=== PATIENT | female | born 1950 | race Two or more races ===

== ENCOUNTER 2017-11-29 11:34 | Emergency (ER) | payer OTHER ==
[2017-11-29] MEDS: DIATR MEGLU/DIATRIZOATE SODIUM 120 ML BTL (11:49)
[2017-11-29] MEDS: DIATR MEGLU/DIATRIZOATE SODIUM 30 ML SOLUTION PO (12:00)
== END 2017-11-29 14:32 | disposition home or self-care (01) ==
LOC: E/R 11:34
DX: J96.10 Chronic respiratory failure, unspecified whether with hypoxia or hypercapnia (principal); Z87.891 Personal history of nicotine dependence
CPT/HCPCS: 74018; 94002; 99283-25

== ENCOUNTER 2017-12-01 08:19 | Emergency (ER) | payer OTHER ==
[2017-12-01] MEDS: LORAZEPAM 2 MG INJ IM (09:24)
[2017-12-01] MEDS: SOD CHLORIDE 0.9% 1,000 ML IV (10:50)
[2017-12-01 11:00] LABS: ADD MAN DIFF? NO
[2017-12-01 11:08] LABS: BASOPHILS % 0.2 % (0.0-2.0); EOSINOPHILS # 0.1 10^3/ul (0.0-0.5); EOSINOPHILS % 0.9 % (0.0-7.0); HEMATOCRIT 27.5 % (37.0-47.0); HEMOGLOBIN 9.7 g/dl (12.0-16.0); LYMPHOCYTES # 1.1 10^3/ul (0.8-2.9); MEAN CORPUSCULAR HEMOGLOBIN 32.8 pg (29.0-33.0); MEAN CORPUSCULAR HGB CONC 35.3 g/dl (32.0-37.0); MEAN CORPUSCULAR VOLUME 92.9 fl (82.0-101.0); MEAN PLATELET VOLUME 9.3 fl (7.4-10.4); MONOCYTE # 0.6 10^3/ul (0.3-0.9); MONOCYTES % 4.2 % (0.0-11.0); NEUTROPHIL # 11.6 10^3/ul (1.6-7.5); NEUTROPHILS % 85.9 % (39.0-77.0); PLATELET COUNT 315 10^3/UL (140-415); RED BLOOD COUNT 2.96 10^6/ul (4.20-5.40); RED CELL DISTRIBUTION WIDTH 13.2 % (11.5-14.5)
[2017-12-01 11:08] LABS: WHITE BLOOD COUNT 13.5 10^3/ul (4.8-10.8)
[2017-12-01 11:19] LABS: ALANINE AMINOTRANSFERASE 53 IU/L (13-69); ALBUMIN 3.5 g/dl (3.3-4.9); ALBUMIN/GLOBULIN RATIO 0.85; ALKALINE PHOSPHATASE 144 IU/L (42-121); ANION GAP 18 (8-16); ASPARTATE AMINO TRANSFERASE 44 IU/L (15-46); BILIRUBIN,INDIRECT 0.1 mg/dl (0-1.1); BILIRUBIN,TOTAL 0.1 mg/dl (0.2-1.3); BLOOD UREA NITROGEN 66 mg/dl (7-20); CALCIUM 9.4 mg/dl (8.4-10.2); CARBON DIOXIDE 17 mmol/L (21-31); CHLORIDE 105 mmol/L (97-110); CREATININE 0.95 mg/dl (0.44-1.00); GLUCOSE 85 mg/dl (70-220); POTASSIUM 5.2 mmol/L (3.5-5.1); SODIUM 135 mmol/L (135-144); TOTAL PROTEIN 7.6 g/dl (6.1-8.1)
[2017-12-01 11:33] LABS: INR 1.15; PROTIME 14.9 Sec (11.9-14.9); PT RATIO 1.2
[2017-12-01 11:34] LABS: PARTIAL THROMBOPLASTIN TIME 35.7 Sec (25.0-35.0)
[2017-12-01] MEDS: morphine 2 MG INJ IV (21:21)
== END 2017-12-02 01:45 | disposition short-term general hospital (02) ==
LOC: E/R 12-02 01:45
DX: K94.23 Gastrostomy malfunction (principal); R06.02 Shortness of breath
CPT/HCPCS: 36415; 80053; 82962; 85025; 85610; 85730; 94002; 94003; 96372; 96374; 99285-25